=== PATIENT | female | born 1935 | race Caucasian/White ===

== ENCOUNTER 2019-01-04 11:42 | Emergency (ER) | payer MEDICARE ==
--- NOTE | 2019-01-04 12:17 | UC ---
Complaint Female HPI - HPI Summary HPI Summary: Sophia is a diabetic elderly female who per nursing triage is complaining of: Pelvic "pressure" (now resolved), urinary incontinence this morning, dysuria, and body aches since this morning. No known fever. Glucose fingersticks usually run 103-130 but was 172 this morning. - History Of Current Complaint Chief Complaint: [facility]CGU Stated Complaint: URINARY COMPLAINT Time Seen by Provider: 01/04/19 12:09 Hx Obtained From: Patient ?: No Onset/Duration: Gradual Onset, Lasting Days Pain Intensity: 0 - Allergies/Home Medications Allergies/Adverse Reactions: Allergies Allergy/AdvReac Type Severity Reaction Status Date / Time cephalexin Allergy Unknown Verified 01/04/19 13:58 Reaction Details metformin [From Glucophage] Allergy "It almost Verified 01/04/19 12:04 killed me." Home Medications: Home Medications Cholecalciferol TAB* [Vitamin D TAB*] 2,000 units PO DAILY 01/04/19 [History Confirmed 01/04/19] Codeine TAB* [Codeine Tab*] 15 mg PO BID 01/04/19 [History Confirmed 01/04/19] Cyanocobalamin TAB* [Vitamin B12 TAB*] 500 mcg PO DAILY 01/04/19 [History Confirmed 01/04/19] Dipyridamole/Aspirin 25/200* [Aggrenox 25/200*] 1 cap.er PO BID 01/04/19 [ History Confirmed 01/04/19] Ferrous Sulfate TAB* 325 mg PO DAILY 01/04/19 [History Confirmed 01/04/19] Folic Acid TAB* [Folvite TAB*] 1 mg PO DAILY 01/04/19 [History Confirmed ] Gabapentin CAP(*) [Neurontin 400 mg CAP(*)] 400 mg PO BEDTIME 01/04/19 [History Confirmed 01/04/19] Hydrochlorothiazide TAB* [Hydrodiuril TAB*] 12.5 mg PO DAILY 01/04/19 [History Confirmed 01/04/19] Hydroxychloroquine TAB* [Plaquenil TAB*] 200 mg PO BID 01/04/19 [History Confirmed 01/04/19] Latanoprost 0.005%* [Xalatan 0.005%*] 1 drop BOTH EYES BEDTIME 01/04/19 [ History Confirmed 01/04/19] Lisinopril 40 mg PO DAILY 01/04/19 [History Confirmed 01/04/19] Metoprolol Tartrate TAB* [Lopressor TAB*] 50 mg PO BID 01/04/19 [History Confirmed 01/04/19] Omeprazole CAP (NF) [Prilosec CAP* 20 MG] 20 mg PO DAILY 01/04/19 [History Confirmed 01/04/19] Pravastatin Sodium 20 mg PO DAILY 01/04/19 [History Confirmed 01/04/19] Sitagliptin (NF) [Januvia (NF)] 50 mg PO QAM 01/04/19 [History Confirmed ] glipiZIDE [Glipizide ER] 10 mg PO BID 01/04/19 [History Confirmed 01/04/19] PMH/Surg Hx/FS Hx/Imm Hx Previously Healthy: No - diabetes, rheumatoid arthritis Endocrine History: Diabetes - Surgical History Surgical History: Yes Surgery Procedure, Year, and Place: BILATERAL KNEE REPLACEMENT, 3 C-SECTIONS, APPENDECTOMY - Social History Alcohol Use: None Substance Use Type: None Smoking Status (MU): Never Smoked Tobacco Review of Systems All Other Systems Reviewed And Are Negative: Yes Constitutional: Positive: Negative Skin: Positive: Negative Eyes: Positive: Negative ENT: Positive: Negative Respiratory: Positive: Negative Cardiovascular: Positive: Negative Gastrointestinal: Positive: Negative Genitourinary: Positive: Dysuria, Frequency, Urgency Motor: Positive: Negative Neurovascular: Positive: Negative Musculoskeletal: Positive: Negative Neurological: Positive: Negative Psychological: Positive: Negative Is Patient Immunocompromised?: Yes Physical Exam Triage Information Reviewed: Yes Appearance: Well-Appearing, Pain Distress, Obese Vital Signs: Initial Vital Signs Temp 97.4 F 01/04/19 12:02 Pulse 55 01/04/19 12:02 Resp 18 01/04/19 12:02 Pulse Ox 98 01/04/19 12:02 Vital Signs Reviewed: Yes Eye Exam: Normal ENT Exam: Normal Dental Exam: Normal Neck exam: Normal Respiratory Exam: Normal Respiratory: Positive: Chest non-tender, Lungs clear, Normal breath sounds Cardiovascular Exam: Normal Cardiovascular: Positive: RRR, No Murmur, Pulses Normal Abdominal Exam: Normal Abdomen Description: Positive: CVA Tenderness (R) - neg, CVA Tenderness (L) - neg Bowel Sounds: Positive: Present Musculoskeletal Exam: Normal Neurological Exam: Normal Psychological Exam: Normal Skin Exam: Normal Complaint Female Dx - Course Course Of Treatment: hx obtained, exam performed ,meds reviewed , UA obtained, positive for leuks, will treate and send for culture, patient already has appointment with PCP in 4 days, follow up then. - Differential Dx/Diagnosis Differential Diagnosis/HQI/PQRI: Urinary Tract Infection Provider Diagnosis: UTI (urinary tract infection) Discharge - Sign-Out/Discharge Documenting (check all that apply): Patient Departure All imaging exams completed and their final reports reviewed: No Studies - Discharge Plan Condition: Stable Disposition: HOME Prescriptions: Nitrofurantoin Monohyd/M-Cryst [Macrobid 100 mg Capsule] 100 mg PO BID #14 cap Patient Education Materials: Urinary Tract Infection in Women (ED) Referrals: Meera Banegas MD [Primary Care Provider] - Additional Instructions: 1. I am waiting to hear from your doctors office to obtain your allergy list. When we hear back I will call in a script to [facility] and let you know it is ready for picker operator. 2. IN the meantime, increase your fluid intake and get rest. 3. Monitor your blood sugar 4. FOllow up with Dr Banegas at the appointment you have scheduled on tuesday , sooner if you develop a fever or uncontrolled blood sugar. - Billing Disposition and Condition Condition: STABLE Disposition: Home - Attestation Statements Provider Attestation: Per institutional requirements, I have reviewed the chart, however, I was not consulted specifically or made aware of this patient by the midlevel provider. I did not personally evaluate, interact with , or disposition this patient.
== END 2019-01-04 12:44 | disposition home or self-care (01) ==
LOC: UCCORT 11:42
DX: N39.0 Urinary tract infection, site not specified (principal); E11.9 Type 2 diabetes mellitus without complications; M06.9 Rheumatoid arthritis, unspecified; Z88.1 Allergy status to other antibiotic agents; Z88.8 Allergy status to other drugs, medicaments and biological substances; Z79.84 Long term (current) use of oral hypoglycemic drugs
CPT/HCPCS: 81003; 87086; 87088; 99213; G0463